=== PATIENT | male | born 1955 | race Caucasian/White ===

== ENCOUNTER → 2020-05-18 10:50 | Outpatient (BNVA) | payer MEDICARE, SELFPAY | PROVIDERS: PCP Internal Medicine; Referring Provider Internal Medicine; Visit Provider Surgery | DX: R63.4 Abnormal weight loss (principal); K21.9 Gastro-esophageal reflux disease without esophagitis | CPT/HCPCS: 99202; 99204 ==

== ENCOUNTER 2020-05-21 11:12 | Outpatient (REF) | payer MEDICARE, SELFPAY ==
[2020-05-21 15:02] LABS: Abs Immature Grans 0.02 10^3/uL (0.0-0.06); Absolute Basophil Count 0.02 10^3/uL (0.0-0.2); Absolute Eosinophil Count 0.15 10^3/uL (0.0-0.7); Absolute Lymphocyte Count 1.32 10^3/uL (1.2-3.4); Absolute Monocyte Count 0.49 10^3/uL (0.1-0.8); Absolute Neutrophil Count 4.43 10^3/uL (1.2-6.7); Basophils % 0.3; Eosinophils % 2.3; HGB 14.8 g/dL (13.5-17.5); Immature Grans % 0.3; Lymphocytes % 20.5; MCH 30.1 pg (27.0-33.0); MCHC 32.2 % (32.0-36.0); MCV 93.7 fL (80-95); MPV 9.6 fL (8.0-11.0); Monocytes % 7.6; Nucleated RBC 0 %; Platelet Count 272 10^3/uL (130-400); RBC 4.91 10^6/uL (4.36-5.78); RDW 12.4 % (11.8-14.1); RDW-SD 42.6 fL; WBC 6.43 10^3/uL (4.4-10.8)
[2020-05-21 15:43] LABS: ALT 44 U/L (16-63); AST 20 U/L (15-37); Albumin 3.9 g/dL (3.4-5.0); Alkaline Phosphatase 59 U/L (46-116); BUN 17 mg/dL (7-18); Bilirubin, Total 0.4 mg/dL (0.2-1.0); Calcium 9.1 mg/dL (8.5-10.1); Calculated LDL 148 mg/dL (<100); Chloride 104 mmol/L (98-107); Cholesterol 228 mg/dL (<200); Glucose 100 mg/dL (74-106); HDL Cholesterol 61 mg/dL (40-60); Potassium 4.4 mmol/L (3.5-5.1); Sodium 139 mmol/L (136-145); TSH (W/Ref FT4) 1.16 uIU/mL (0.36-3.74); Triglyceride 97 mg/dL (<150)
== END 2020-05-21 11:32 ==
LOC: NCHCN 11:12
PROVIDERS: PCP Internal Medicine; Visit Provider Physician Assistant
DX: R63.4 Abnormal weight loss (principal); K30 Functional dyspepsia; E78.89 Other lipoprotein metabolism disorders; Z83.49 Family history of other endocrine, nutritional and metabolic diseases
CPT/HCPCS: 80053; 80061; 84443; 85025

== ENCOUNTER 2020-05-26 02:26 | Outpatient (CLI) | payer MEDICARE, SELFPAY ==
[2020-05-27 12:43] LABS: COVID-19 RT-PCR UVMMC Result Negative (Negative)
== END 2020-05-26 02:27 | disposition home or self-care (01) ==
LOC: LBO 02:26
PROVIDERS: PCP Internal Medicine; Visit Provider Surgery
DX: Z11.52 Encounter for screening for COVID-19 (principal); Z01.818 Encounter for other preprocedural examination
CPT/HCPCS: U0003

== ENCOUNTER 2020-06-01 11:59 | Day surgery (SDC) | payer MEDICARE, OTHER, SELFPAY ==
--- NOTE | 2020-06-01 07:05 | ENDO_ITS ---
Date of service: 06/01/20 Time of Service: 13:39 Endoscopy Report DATE OF PROCEDURE: 06/01/20 PRE-OP DIAGNOSIS: GERD, Weight loss, intermittent diarrhea POST-OP DIAGNOSIS: same (gastritis and duodenitis, esophagitis, colon polyps) PROCEDURE: 1. EGD with biopsies 2. Colonoscopy with polypectomy SURGEON: Nesha Meza ANESTHESIA: other (General/ASA 2/Jagdish Carr, [employer]) ESTIMATED BLOOD LOSS: 3 PATHOLOGY: other (duodenal bx, antrum bx, GE junction bx, rectal polyp x5, descending polyp x1, ascending polyp x2) COMPLICATIONS: None DISPOSITION: same day INDICATIONS: Pt thinks he is losing wt. He can't gain wt. He notes his close are fitting loser. Nl wt- 175#'s. He doesn't wt himself at home. He notes difficulty swallowing. He has no problems swallowing water. He has trouble swalloing hard food. Worse if he is in the truck all day w/ the heater running. No blood in stools. Denies coughing or choking when he swallows. House is also very dry. appetite is normal. Still has appetite. He is trying to eat small meals more frequently. He notes generalized abdominal pain.. He neotes it is worse at night. He notes it is worse at night. He notes occ H/I w/ fired or greasy foods. He has had GB Out. If he eats lots of greasy food- will have diarrhea. Otherwise nl. and he moves his bowels once a day. No family hx of CRC cancer, no foregut caner that he knows of. Takes prilosec OTC prn when he has bad flares. no prior CE. NO changes in his bowel habits. Varies depending on what he eats. He has never taken cholestyramine. He has never had a colonoscopy. He is not currently on any medication for his stomach. Per patient his GERD symptoms are much improved on pantoprazole and carafate PREP: Miralax/Dulcolax PROCEDURE START TIME: 13:39 PROCEDURE END TIME: 14:18 COLONOSCOPY RETRACTION TIME: 14 minutes FINDINGS: inflammation of the duodenum, stomach and esophagus. 8 polyps PROCEDURE DESCRIPTION: After informed consent was obtained the patient was take to the procedure room and placed in a supine position. Monitors were applied and a time out was done. The patients name, date of , procedure type, allergies to medications and metal in their body was reviewed. A bite block was placed and the patient was sedated. Once sedated and comfortable the gastroscope was advanced through the oropharynx which was grossly normal into the esophagus. The proximal and mid- esophagus were normal. In the distal esophagus there was mild inflammation noted consistent with reflux. The scope was advanced into the stomach and through the pylorus into the 3rd portion of the duodenum. The 3rd and 2nd part of the duodenum was noted to be normal. There was mild inflammation in the 1st portion of the duodenum. Biopsies were done of the 1st portion of the duodenum. The scope was retracted back into the stomach. There was mild inflammation noted in the antrum. Biopsies were done to rule out H. pylori. There were no ulcers. The scope was retro-flexed. The cardia and fundus were noted to be normal. There was no hiatal hernia noted. The scope was retracted back into the esophagus and biopsies were done of the GE junction to rule out Tomlinson's. The Z line was regular. The GE junction was at 40 cm. While the patient was still sedated they were placed in a left decubitous position. A rectal exam was done. External exam was normal. Internal exam revealed a normal sphincter tone and no palpable masses. The prostate felt enlarged but smooth. The scope was then introduced and retro-flexed. No internal hemorrhoids, masses or polyps were identified on retro-flexion. The scope was then advanced to the cecum without difficulty. The ileocecal valve and appendiceal orifice were identified. The prep was adequate. The scope was then slowly retracted over 14 minutes back into the rectum. Polyps were removed with cold forceps in the ascending colon x2, descending colon x1, and rectum x5. There was no diverticulosis noted. The scope was removed and the patient was woken up and taken back to Same day surgery in stable condition. The patient tolerated the procedure well and there were no immediate complications. Follow up: Most likely 5 years for his next colonoscopy. Follow up in the office in 2 weeks.
--- NOTE | 2020-06-01 07:10 | PDOC.DSDIS_ITS ---
Discharge Plan Disposition Patient Disposition: HOME Condition: Good Discharge Details Reason For Visit: Colonoscopy and EGD Attending Provider: Nesha Meza Primary Care Provider: Nesha Meaz Home Meds and New Rx's Prescriptions: Continued pantoprazole [Protonix] 40 mg tablet,delayed release (DR/EC) 40 mg PO DAILY Qty: 30 RF: 12 sucralfate [Carafate] 1 gram tablet 1 g PO QACHS Qty: 90 RF: 12 calcium carbonate [Tums] 200 mg calcium (500 mg) tablet,chewable 200 mg PO BID RF: 0 Discontinued polyethylene glycol 3350 17 gram/dose powder 238 g PO ONCE Qty: 238 RF: 0 bisacodyl [Dulcolax (bisacodyl)] 5 mg tablet,delayed release (DR/EC) 5 mg PO ONCE Qty: 4 RF: 0 Discharge Instructions Instructions: Diet for Stomach Ulcers and Gastritis (ED), Duodenitis (DC), Gastritis (DC), Esophagitis (DC), Colorectal Polyps (DC) Additional Instructions: Findings: inflammation of the duodenum, stomach, and esophagus Multiple polyps of the large intestine Follow up: 5 years for next colonoscopy 2 weeks in the office Medications: Continue Carafate and Pantoprazole Please call if you develop: fevers >101.5 Nausea or Vomiting Abdominal pain that is not transient DAY SURGERY UNIT POST ENDOSCOPY INSTRUCTIONS 1. Because there will be medication in your system for the next 24 hours, you may feel a little sleepy. Your coordination will be affected. Therefore: a. Do not drive or operate dangerous equipment for 24 hours. b. Do not drink alcohol beverages for 24 hours (not even beer). c. Plan to go home and rest for the day. 2. Generally there are no restrictions on your activity after a day or so has gone by, but you may feel a bit fatigued for a few days. 3 After you arrive home you may have a light meal and return to a normal diet as you can tolerate it without feeling sick to your stomach. 4. After surgery, you may feel pain or discomfort. This should be only transient , but if it persists please contact your doctor. 5. If there are any questions regarding the findings of your procedure, please feel free to contact your doctor. 6. If you are unable to contact your doctor with a problem, contact the hospital at [phone]. 7. Continue all your regular medications unless directed otherwise. I understand the above instructions and have no questions. Signature of Patient or Responsible Adult Escort Date/Time Name of Responsible Adult Escort Signature of Nurse Date/Time Activity:: Activity as Tolerated Diet:: low acid Discharge Orders Discharge Orders: Discharge Order (Routine); Ordered 06/01/20 Ordered By: Nesha Meza
[2020-06-01 12:29] VITALS: BP 126/83; PULSE 71; RESP 18; TEMP 36.4; O2SAT 95
[2020-06-01] MEDS: Lactated Ringers 1,000 ML 80 ML IV (12:50)
--- NOTE | 2020-06-01 13:44 | STOM_PTH ---
PATIENT: Thiago Mooney LOC: [facility] U#:[id number] AGE/SX: 65/M ROOM: RE06/01/[address]: Nesha Meza MD : [id number] BED: DIS: 06/01/2020 SPEC #: [id number] RECD: 06/01/20 17:41 STATUS: CATIA RE #: [id number] DIOGO: 06/01/20 13:[address]: Nesha Meza DEPT: Surgical Specimen RECD BY: Jinny Dai Tissues: 1 - BIOPSY BOWEL 2 - STOMACH BIOPSY 3 - ESOPHAGUS BIOPSY 4 - BIOPSY BOWEL 5 - BIOPSY BOWEL 6 - BIOPSY BOWEL Procedures: GROSS AND MICRO LEVEL 4 Comments: [id number]
[2020-06-01 15:01] VITALS: BP 121/88; PULSE 64; RESP 16; TEMP 36.2; O2SAT 98
== END 2020-06-01 15:29 | disposition home or self-care (01) ==
LOC: SUR 11:59
PROVIDERS: PCP Surgery; Visit Provider Surgery
PROC: (CPT 45380; principal; 2020-06-01 13:30)
DX: K21.9 Gastro-esophageal reflux disease without esophagitis (principal); R63.4 Abnormal weight loss; R19.7 Diarrhea, unspecified; K29.80 Duodenitis without bleeding; K29.70 Gastritis, unspecified, without bleeding; D12.2 Benign neoplasm of ascending colon; D12.4 Benign neoplasm of descending colon; K62.1 Rectal polyp
CPT/HCPCS: 45380; 43239; 88305; J2001

== ENCOUNTER → 2020-06-23 11:26 | Outpatient (BNVA) | payer MEDICARE, SELFPAY | PROVIDERS: PCP Internal Medicine; Referring Provider Surgery; Visit Provider Surgery | DX: Z48.815 Encounter for surgical aftercare following surgery on the digestive system (principal); K63.5 Polyp of colon; K21.9 Gastro-esophageal reflux disease without esophagitis; Z79.899 Other long term (current) drug therapy | CPT/HCPCS: 99213; 99214 ==

== ENCOUNTER → 2020-11-11 13:48 | Outpatient (BNVA) | payer MEDICARE, SELFPAY | PROVIDERS: PCP Internal Medicine; Referring Provider Physician Assistant; Visit Provider Nurse Practitioner Adult Health | DX: G56.02 Carpal tunnel syndrome, left upper limb (principal); K21.9 Gastro-esophageal reflux disease without esophagitis; E78.5 Hyperlipidemia, unspecified | CPT/HCPCS: 95909; 99203 ==

== ENCOUNTER 2020-12-25 15:33 | Outpatient (REF) | payer MEDICARE, SELFPAY ==
[2020-12-25 19:35] LABS: ALT 41 U/L (16-63); AST 14 U/L (15-37); Albumin 3.9 g/dL (3.4-5.0); Alkaline Phosphatase 67 U/L (46-116); Bilirubin, Direct 0.1 mg/dL (0.0-0.2); Bilirubin, Total 0.4 mg/dL (0.2-1.0)
[2020-12-25 20:05] LABS: Calculated LDL 109 mg/dL (<100); Cholesterol 180 mg/dL (<200); HDL Cholesterol 60 mg/dL (40-60); Triglyceride 55 mg/dL (<150)
== END 2020-12-25 15:34 | disposition home or self-care (01) ==
LOC: NCHCN 15:33
PROVIDERS: PCP Internal Medicine; Visit Provider Physician Assistant
DX: E78.5 Hyperlipidemia, unspecified (principal)
CPT/HCPCS: 80061; 80076

== ENCOUNTER 2021-08-24 19:26 | Outpatient (REF) | payer MEDICARE, SELFPAY ==
[2021-08-24 19:20] LABS: ALT 32 U/L (16-63); AST 15 U/L (15-37); Alkaline Phosphatase 68 U/L (46-116); Anion Gap 6.8 mmol/L (3-11); BUN 20 mg/dL (7-18); CO2 29.2 mmol/L (21.0-32.0); CREATININE 0.9 mg/dL (0.70-1.30); Calcium 8.6 mg/dL (8.5-10.1); Calculated LDL 111 mg/dL (<100); Chloride 104 mmol/L (98-107); Cholesterol 186 mg/dL (<200); Glucose 97 mg/dL (74-106); HDL Cholesterol 63 mg/dL (40-60); Potassium 4.4 mmol/L (3.5-5.1); Sodium 140 mmol/L (136-145); Total Protein 7.1 g/dL (6.4-8.2); Triglyceride 64 mg/dL (<150)
[2021-08-24 19:55] LABS: Bilirubin, Total 0.5 mg/dL (0.2-1.0)
[2021-08-25 18:40] LABS: PSA, Screening 2.6 ng/mL (<=4.5)
== END 2021-08-24 19:27 | disposition home or self-care (01) ==
LOC: LBN 19:26
PROVIDERS: PCP Internal Medicine; Visit Provider Physician Assistant
DX: E78.5 Hyperlipidemia, unspecified (principal); R35.1 Nocturia; Z12.5 Encounter for screening for malignant neoplasm of prostate
CPT/HCPCS: 80053; 80061; 84153

== ENCOUNTER 2023-06-26 14:26 | Emergency (ER) | payer MEDICARE, SELFPAY ==
[2023-06-26] VITALS (40 sets, daily range): BP systolic 121–175; BP diastolic 85–120; PULSE 84–116; RESP 9–23; TEMP 36.8; O2SAT 97–98
--- NOTE | 2023-06-26 14:15 | RT.EKG_ITS ---
APPROVED REPORT Exam: Resting ECG Reason for Exam: Chest Pain Patient Location: E HR:106 bpm ECG Measurements Heart Rate 106 AXIS PA 184 P 71 QRSd 85 QRS 14 QT 326 T 63 QTc 433 Conclusion Sinus tachycardia...rate> 99 Anterior infarct, acute...ST >0.25mV, V2-V5 Anteroseptal VT with inferior extension (ST depression)
--- NOTE | 2023-06-26 14:30 | RT.EKG_ITS ---
APPROVED REPORT Exam: Resting ECG Reason for Exam: Patient Location: E HR:101 bpm ECG Measurements Heart Rate 101 AXIS VT 175 P 58 QRSd 90 QRS 7 QT 350 T 88 QTc 453 Conclusion Sinus tachycardia...rate> 99 Probable anteroseptal infarct, recent...Q, ST>0.15mV, T neg, V1-V2 ST elevation anteroseptally and depression inf have improved w/decreased pain
--- NOTE | 2023-06-26 14:45 | DI.RAD_ITS ---
Exam(s) XR PORTABLE CHEST AP EXAM: XR PORTABLE CHEST AP CLINICAL HISTORY: CP TECHNIQUE: 2D digital imaging was performed of the chest. One image was obtained. An AP view was ob tained. COMPARISON: No exams were available for comparison FINDINGS: MEDIASTINUM: Normal. HEART: Normal. PULMONARY VASCULATURE: Normal. LUNGS: Clear. PLEURAL SPACE: No pleural effusion or pneumothorax. BONE:Within normal limits for the patient's age. OTHER FINDINGS:Normal. IMPRESSION: No acute pulmonary findings. DATA REPOSITORY: RADIATION DOSE DELIVERED:
--- NOTE | 2023-06-26 14:50 | W.ED.GENAD ---
Discharge Plan Disposition Patient Disposition: Transfer-Acute Inpatient Care Specific Acute Inpt Facility: [facility] Condition: Stable Discharge Details Clinical Impression: ST elevation (STEMI) myocardial infarction Primary Care Provider: Johnathon Howard ED Provider: Ale Marmolejo Home Meds and New Rx's Prescriptions: No Action pantoprazole [Protonix] 40 mg tablet,delayed release (DR/EC) 40 mg PO DAILY Qty: 30 12RF HPI General Date/Time Provider Initiated Documentation: 06/26/23 14:42. HPI Narrative: This 68-year-old male patient presents with a chief complaint of upper chest pain going into his bilateral shoulders that has been ongoing for the past 2 weeks. The patient states that it has been off and on. Typically it seems to be worse with any kind of exertion. Last night it began while he was at a family member's swim meet. He says around 6 PM last night it was a 6.5-7 out of 10. It lasted for 1 to 2 hours and then got a little bit better but did not resolve. He says it has been constant since 6 PM last night although has waxed and waned. At its worst it was 6.5-7 out of 10 and at its best it is 1-2 out of 10. Last night it went down to 1-2 out of 10 and this morning when he got up at 6 AM was the same. By 7:30 this morning it was back up to 6.5-7 out of 10. 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 He decided to call his primary care doc later today and they told him to come to the emergency department. He states that with the chest pain he has a little bit of shortness of breath. He does not smoke, does not have high blood pressure or diabetes. He does not use cocaine or meth. He does have high cholesterol but has not had this checked in a long time. He denies fever or URI symptoms. There is no belly pain, nausea, vomiting, diarrhea, or dysuria. He has no pedal edema or calf pain. There is no headache, sore throat, funny rashes, weakness, or dizziness. Related Data Home Medications Medication Instructions Recorded Confirmed pantoprazole 40 mg tablet,delayed 40 mg PO DAILY #30 tabs 05/18/20 06/26/23 release (Protonix) Previous Rx's Medication Instructions Recorded pantoprazole 40 mg tablet,delayed 40 mg PO DAILY #30 tabs 05/18/20 release (Protonix) Allergies Allergy/AdvReac Type Severity Reaction Status Date / Time No Known Allergies Allergy Unverified 06/26/23 15:10 General Stated Complaint: Chest Pain STEPHEN: 2 Review of Systems Narrative: See HPI Exam Const General: no acute distress, well developed, well groomed and not in acute distress Nutritional Appearance: well nourished Orientation: alert and oriented x3 HENMT Head: normocephalic and atraumatic Ears: external ears normal Mouth: oropharynx normal and moist mucous membranes Throat: posterior oropharynx normal Eyes Conjunctivae: conjunctivae normal Neck Neck: full ROM and supple Chest Chest: normal inspection of the chest Resp Effort & Inspection: normal respiratory effort Auscultation: clear to auscultation bilaterally Cardio Rate: regular rate Rhythm: regular rhythm Heart Sounds: no murmurs and no rubs GI Inspection: normal to inspection Palpation: soft, nontender and other (non distended) Auscultation: normal bowel sounds Skin General skin exam: no rashes or lesions noted and other (pink, warm, dry) Neuro General: patient alert, patient awake and patient oriented x3 Speech: speech normal Motor: other (LUCIANO) Sensory Exam: no sensory deficits noted Extrem General: normal to inspection, full ROM and pedal edema present Psych Mental Status: mental status grossly normal Speech and Movement: speech and movement normal Affect: normal affect Course Vital Signs Vital signs: Vital Signs Pulse 108 H 06/26/23 14:29 Respiratory Rate 12 06/26/23 14:29 Blood Pressure 169/112 H 06/26/23 14:29 Pulse Oximetry 98 06/26/23 14:29 Pulse 108 H 06/26/23 14:29 Respiratory Rate 12 06/26/23 14:29 Blood Pressure 169/112 H 06/26/23 14:29 Blood Pressure Position Supine 06/26/23 14:29 Pulse Oximetry 98 06/26/23 14:29 Oxygen Delivery Method Room Air 06/26/23 14:29 Oxygen Flow Rate 0 06/26/23 14:29 Medical Decision Making To get ticagrelor 180 mg as well as atorvastatin 80 mg. He accepts the patient in transfer as a STEMI. The patient will be coming to Dr. Hoyt as the accepting physician. Daughter is flying and the patient is amenable to this. Troponin is back and is 8959. Has had chest pain since 1800 last night. It has been constant although it has waxed and waned. He is having an anteroseptal MN at this time though it does look like there is inferior involvement with depression in those leads. He is likely out of the window for thrombolytics though I would like to speak to cardiology at [facility] and get him down there sooner than later. EKG number 2 after [address] segments. We will check posterior leads (EKG). He remains nontoxic-appearing. 1500. The pts. pain is down to 3/10 after 2 NTG. BP is down but still elevated at 130/90's. He is getting his 3rd NTG and we will start a gtt. [facility] is calling back. 1530. Discussed with Dr. Denney from cardiology at [facility]. He requested ticagrelor 180 mg and atorvastatin 80 mg. He concurs with holding on thrombolytics at this time. [facility] is flying and the patient is amenable to transfer this way. The patient has had a couple of unifocal PVCs but no other evidence of arrhythmia. Brodie nontoxic-appearing. 1620. [facility] here; no questions. Medical Records Medical records reviewed: Yes I reviewed the patient's medical records. Imaging Data Radiologic Study: Imaging: X-Ray (CXR: NAD) Lab Data Lab results reviewed: Yes I reviewed the patient's lab results. Lab results narrative: Trop 8959, BUN and creatinine normal, electrolytes normal, remainder of labs unremarkable ECG Data Attestation: I personally reviewed and interpreted this ECG (s) as follows: (1. Sinus tachycardia at 105, ST elevation V1 through 4 with inferior depression. 2. Sinus tachycardia at 100, decreased ST elevation V1 through 4 and improving depression inferiorly. 3. Posteror leads show only ST elevation V1,2; ST 120) Quality:SDOH Health Related Social Needs: No Data to Display Critical Care Time Critical Care Time Critical Care Time: Yes Total Critical Care Time: 75 Attestation: Multiple EKGs, tests, chest x-ray review, discussion with nurses and consultants, reevaluation of patient, etc. PFSH All Active Problems (Updated 06/26/23 @ 15:49 by Ale Marmolejo MD) ST elevation (STEMI) myocardial infarction (Acute) Left carpal tunnel syndrome (Acute) Hyperplastic colon polyp (Acute) Tubular adenoma of colon (Acute) Chronic GERD (Acute) Medical History GERD (gastroesophageal reflux disease) Hyperlipidemia History of colon polyps Chronic prostatitis Testicular pain, left Epigastric discomfort Toe pain, left pt. questions this Basal cell carcinoma, face Weight loss Shoulder pain, right Surgical History History of esophagogastroduodenoscopy (EGD) (~05/29/20) History of colonoscopy with polypectomy (~05/29/20) Hx of cholecystectomy History of back surgery 1999 Social History Smoking/Tobacco Use Status: Never Smoking risk assessment performed?: Yes Alcohol Intake: current Alcohol Intake frequency: a few times a month Alcohol type: wine and hard liquor Substance use type: does not use Details: alcohol: t-7, couple drinks Household members: none Housing: house Number of Children: 2 number of grandchildren: 1 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
[2023-06-26 14:51] LABS: Abs Immature Grans 0.06 10^3/uL (0.0-0.06); Absolute Basophil Count 0.01 10^3/uL (0.0-0.2); Absolute Eosinophil Count 0.01 10^3/uL (0.0-0.7); Absolute Lymphocyte Count 0.76 10^3/uL (1.2-3.4); Basophils % 0.1; Eosinophils % 0.1; HCT 44.3 % (40.0-50.0); HGB 14.9 g/dL (13.5-17.5); Immature Grans % 0.4; Lymphocytes % 5.6; MCH 29.9 pg (27.0-33.0); MCHC 33.6 % (32.0-36.0); MCV 89 fL (80-95); MPV 9.2 fL (8.0-11.0); Monocytes % 4.4; Neutrophils % 89.4; Platelet Count 279 10^3/uL (130-400); RBC 4.98 10^6/uL (4.36-5.78); RDW 12.3 % (11.8-14.1); RDW-SD 39.9 fL; WBC 13.64 10^3/uL (4.4-10.8)
[2023-06-26 14:52] LABS: Absolute Neutrophil Count 12.19 10^3/uL (1.2-6.7)
[2023-06-26] MEDS: nitroGLYcerin 0.4 MG TAB ×2 (14:52→15:07)
[2023-06-26] MEDS: Aspirin 325 MG TAB 324 MG PO (14:55)
[2023-06-26] MEDS: Heparin in 0.45% NaCl 25,000 UNIT/250 ML BAG 8.76 UNIT IV (14:55)
[2023-06-26] MEDS: nitroGLYcerin 0.4 MG TAB SL (14:58)
--- NOTE | 2023-06-26 15:00 | RT.EKG_ITS ---
APPROVED REPORT Exam: Resting ECG Reason for Exam: posterior Patient Location: E HR:119 bpm ECG Measurements Heart Rate 119 AXIS OH 153 P 34 QRSd 96 QRS -23 QT 328 T 71 QTc 462 Conclusion Sinus tachycardia...rate> 99 Anteroseptal infarct, possibly acute...Q>35mS, ST>0.15mV, V1-V2 Posterior leads
[2023-06-26] MEDS: Normal Saline 1,000 ML 125 ML IV (15:04)
[2023-06-26] MEDS: Heparin 5,000 UNITS/ML VIAL 4400 UNITS IV (15:14)
[2023-06-26 15:16] LABS: ALT 60 U/L (16-63); AST 85 U/L (15-37); Albumin 3.9 g/dL (3.4-5.0); Alkaline Phosphatase 85 U/L (46-116); Anion Gap 7.5 mmol/L (3-11); BUN 16 mg/dL (7-18); Bilirubin, Total 0.4 mg/dL (0.2-1.0); CO2 27.5 mmol/L (21.0-32.0); Calcium 8.8 mg/dL (8.5-10.1); Chloride 103 mmol/L (98-107); Estimated GFR 81.47 (mL/min/1.73m2); Glucose 136 mg/dL (74-106); Potassium 3.5 mmol/L (3.5-5.1); Sodium 138 mmol/L (136-145); Total Protein 7.6 g/dL (6.4-8.2)
[2023-06-26 15:19] LABS: Troponin I 8959 ng/L (< or =60)
[2023-06-26] MEDS: nitroGLYcerin in D5W 50 MG/250 ML BTL IV (15:21)
[2023-06-26 15:29] LABS: PTT Activated 28.2 sec (23.6-32.8); Prothrombin Time 10.4 sec (9.1-11.1)
--- NOTE | 2023-06-26 15:42 | NUR.NOTE ---
Pt's pain decreased from a 6 to a 2 with SL nitro. Infusion started at 5 mcg/min. Pt pain decreased slowly down to a 1. Resting comfortably. Nursing Note:
[2023-06-26] MEDS: Atorvastatin 40 MG TAB 80 MG PO (15:56)
[2023-06-26] MEDS: Ticagrelor 90 MG TAB 180 MG PO (15:57)
== END 2023-06-26 16:31 | disposition short-term general hospital (02) ==
LOC: ER 15:56
PROVIDERS: Emergency Provider Emergency Medicine; PCP Internal Medicine
DX: I21.4 Non-ST elevation (NSTEMI) myocardial infarction (principal); E78.5 Hyperlipidemia, unspecified
CPT/HCPCS: 36415; 80053; 93005; 96361; 96365; 99285; 71045; 83735; 84484; 85025; 85610; 85730; 93010; J1644; J2305; J3490

== ENCOUNTER 2023-07-05 14:51 | Outpatient (REF) | payer MEDICARE, SELFPAY ==
[2023-07-06 18:33] LABS: PSA, Screening 2.8 ng/mL (<=4.5)
== END 2023-07-05 14:52 | disposition home or self-care (01) ==
LOC: NCHCN 14:51
PROVIDERS: PCP Internal Medicine; Referring Provider Physician Assistant; Visit Provider Physician Assistant
DX: N41.1 Chronic prostatitis (principal)
CPT/HCPCS: 84153

== ENCOUNTER 2024-03-01 09:20 | Outpatient (REF) | payer MEDICARE, SELFPAY ==
[2024-03-01 19:39] LABS: Absolute Basophil Count 0.01 10^3/uL (0.0-0.2); Absolute Eosinophil Count 0.08 10^3/uL (0.0-0.7); Absolute Lymphocyte Count 1.13 10^3/uL (1.2-3.4); Absolute Monocyte Count 0.48 10^3/uL (0.1-0.8); Absolute Neutrophil Count 3.32 10^3/uL (1.2-6.7); Basophils % 0.2 %; Eosinophils % 1.6 %; HCT 43.6 % (40.0-50.0); HGB 14.9 g/dL (13.5-17.5); Lymphocytes % 22.5 %; MCH 31.8 pg (27.0-33.0); MCHC 34.2 % (32.0-36.0); MCV 93 fL (80-95); MPV 10.2 fL (8.0-11.0); Monocytes % 9.6 %; Neutrophils % 66.1 %; Platelet Count 294 10^3/uL (130-400); RBC 4.69 10^6/uL (4.36-5.78); RDW 12.4 % (11.8-14.1); RDW-SD 42.3 fL; WBC 5.02 10^3/uL (4.4-10.8)
[2024-03-01 20:18] LABS: ALT 32 U/L (16-63); AST 19 U/L (15-37); Albumin 3.8 g/dL (3.4-5.0); Alkaline Phosphatase 71 U/L (46-116); Anion Gap 6.3 mmol/L (3-11); BUN 19 mg/dL (7-18); CO2 28.7 mmol/L (21.0-32.0); CREATININE 1.1 mg/dL (0.70-1.30); Calcium 9.5 mg/dL (8.5-10.1); Chloride 108 mmol/L (98-107); Estimated GFR 72.22 (mL/min/1.73m2); Glucose 80 mg/dL (74-106); Magnesium 2.3 mg/dL (1.8-2.4); Potassium 4.6 mmol/L (3.5-5.1); Sodium 143 mmol/L (136-145); Total Protein 7.5 g/dL (6.4-8.2); Troponin I 9 ng/L (<or=76)
== END 2024-03-01 09:21 | disposition home or self-care (01) ==
LOC: NCHCN 09:20
PROVIDERS: PCP Internal Medicine; Visit Provider Physician Assistant
DX: I21.4 Non-ST elevation (NSTEMI) myocardial infarction (principal)
CPT/HCPCS: 80053; 83735; 84484; 85025